=== PATIENT | male | born 2000 | race Caucasian/White ===

== ENCOUNTER 2025-09-02 21:29 | Emergency (ER) | payer OTHER, SELFPAY ==
[2025-09-02 21:35] VITALS: BP 125/59; PULSE 75; RESP 17; TEMP 36.6; O2SAT 97; BMI 27.3
--- NOTE | 2025-09-03 00:03 | ED_ITS ---
HPI - Wound/Laceration General Chief Complaint: Wound/Laceration Stated Complaint: left eyebrow laceration Time Seen by Provider: 09/03/25 00:02 Source: patient Mode of arrival: Ambulatory History of Present Illness HPI narrative: 25-year-old male presenting from home for evaluation of laceration to left eyebrow, patient states that he was pulling out an oxygen tank and a piece of metal hit the edge of his eyebrow, states that he had no loss of conscious not on any blood thinners was instructed to come here for sutures, patient's tetanus is up-to-date. Related Data Allergies Allergy/AdvReac Type Severity Reaction Status Date / Time No Known Drug Allergies Allergy Verified 09/02/25 21:35 Review of Systems Review of Systems Narrative: General: Denies fever, chills, weight loss HEENT: Denies headache, eye drainage, eye irritation, head trauma, sore throat, voice change Cardiovascular: Denies any chest pain, palpitations, tachycardia Respiratory: Denies any shortness of breath, cough, wheeze, stridor GI/: Denies any abdominal pain, nausea, vomiting, diarrhea, bright red blood per rectum, melanotic stools, urinary frequency, urinary retention, dysuria, hematuria MSK: Denies any joint pain, muscle pains, swelling Skin: 1 cm laceration to the left eyebrow Neuro: Denies any headache, lightheadedness, dizziness, fainting, weakness Psych: Denies SI/HI Patient History Smoking Status: Never smoker Exam Narrative Exam Narrative: General: Cooperative, well-developed, not in acute distress HEENT: PERRLA, normal sclera, eyelids normal, patient with a 1 cm laceration noted to the left upper eyelid, does not affect the sclera, no other injuries Neck: Active full range of motion, atraumatic Chest: Normal to inspection, negative crepitus, no overlying erythema ecchymosis Respiratory: Normal respiratory effort, not in acute respiratory distress, clear to auscultation bilaterally negative cough, wheeze, tachypnea, rhonchi, rales Cardiology: Regular rate rhythm negative gallop, murmur, rubs GI/: No tenderness to palpation, soft, non rigid, normal to inspection, exam deferred MSK: Full active range of motion in all 4 extremities, atraumatic, no tenderness to palpation of any bony prominences Skin: No rashes or lesions noted Neuro: Alert awake oriented x3, moves all 4 extremities spontaneously, cranial nerves intact, able to answer all questions appropriately follows commands appropriately Psych: Cooperative, negative suicidal or homicidal ideations Initial Vital Signs Initial Vital Signs: Vital Signs Temperature 98 F 09/02/25 21:35 Pulse Rate 75 09/02/25 21:35 Respiratory Rate 17 09/02/25 21:35 Blood Pressure 125/59 L 09/02/25 21:35 Pulse Oximetry 97 09/02/25 21:35 Oxygen Delivery Method Room Air 09/02/25 21:35 Procedures Laceration Repair Laceration 1: Time of procedure: 00:31 Site: face Side (If applicable): left Size (cm): 1 Description: linear Depth: simple, single layer Local Anesthetic: lidocaine 1% Amount of anesthesia used (mL): 1 Pre-repair: wound explored, irrigated extensively and deep structures intact Skin layer closed with: other (Ethilon) Skin layer suture size: 6-0 Number of sutures: 3 Technique: simple, interrupted Course Vital Signs Vital signs: Vital Signs - 8 hr 09/02/25 21:35 Temperature 98 F Pulse Rate 75 Respiratory Rate 17 Blood Pressure 125/59 L Pulse Oximetry 97 Oxygen Delivery Method Room Air MDM - Wound/Laceration MDM Narrative Medical decision making narrative: Patient is a 25-year-old male without any significant past medical history up-to-date on tetanus, presents to the emergency department from home after having an oxygen tank hit him in the eye just prior to arrival. Patient states that he is in the hand he was caring an oxygen tank and a piece of the metal hit him in the eye, he denies any eye trauma, states that a doctor that was on the plane but some Steri-Strips but informed him to come to the ED to get sutures. Patient without any visual disturbances no blood thinners no other injuries he had a 1 cm laceration to the top of the left eyebrow, this was repaired with sutures three sutures of 6 0 Ethilon were placed, patient with strict return precautions were given he understands and agrees to being discharged home with outpatient follow up Discharge Plan Departure Patient Disposition: Home Clinical Impression: Laceration Instructions: DI for Laceration Repair Activity Restrictions/Additional Instructions: You have 3 sutures that need to be removed in a proximally 5 days Please read the discharge instructions sheet carefully and bring all papers to all doctor follow-up visits, as it may contain information that your doctor may want to see. Disease processes change and evolve, if your symptoms worsen or if you develop any new symptoms that are concerning to you please return for evaluation. Your evaluation today does not show any evidence of any life- threatening/serious illnesses requiring admission to the hospital or surgery. Please follow-up with your doctor for re-evaluation in approximately 1 day. Seek immediate medical attention for any worrisome symptoms. *If you do not have a primary care provider please contact the [facility] Resource line at [phone]. They will ask some questions about your medical h istory and help get you set up with a doctor in the community. Referrals: ProviderManny [Primary Care Provider, Family Practice] Stand Alone Forms: Patient Portal/API
[2025-09-03] MEDS: LIDOCAINE 2% INJ MDV 20ML 10 ML INJ (00:15)
[2025-09-03 00:16] VITALS: BP 137/93; PULSE 54; RESP 14; O2SAT 100
== END 2025-09-03 00:51 | disposition home or self-care (01) ==
PROVIDERS: Emergency Provider Student in an Organized Health Care Education/Training Program
DX: S01.112A Laceration without foreign body of left eyelid and periocular area, initial encounter (principal); W26.8XXA Contact with other sharp object(s), not elsewhere classified, initial encounter
CPT/HCPCS: 12011; 99283